=== PATIENT | female | born 1960 | race Caucasian/White ===

== ENCOUNTER 2016-09-22 20:15 | Emergency (ER) | payer OTHER ==
[~2016-09-22 20:15] MED LIST: ALDACTONE100 M1 PO; ALEVE220 MG PO; ASPIRIN CHILDRE81 MG PO; BENZONATATE200 M1 PO; CENTRUM1 TA1 PO; DOXYCYCLINE HY100 M4 PO; FIORICET 300 MG1 CAP PO; FUROSEMIDE20 MG PO; LEVOTHYROXINE88 MCG PO; MOBIC15 M1 PO; PANTOPRAZOLE SO40 M1 PO; PROVENTIL HFA6.7 GM INH; TENORMIN25 M1 PO; TRAMADOL50 MG PO; TYLENOL #31 TAB PO; XANAX0.5 M1 PO
--- NOTE | 2016-09-22 21:29 | ED UPPER/LOWER EXTREMITY COMPL ---
History of Present Illness General Chief Complaint: Upper Extremity Problem Stated Complaint: "@4AM I FELL OUT OF BED, MY LEFT SHOULDER HURT" Source: patient Exam Limitations: no limitations Vital Signs & Intake/Output Vital Signs & Intake/Output Vital Signs Date Time Temp Pulse Resp B/P Pulse O2 O2 Flow FiO2 Ox Delivery Rate 09/22 2218 97.1 88 16 120/74 96 09/22 2021 97.8 90 20 116/78 99 Allergies Coded Allergies: amoxicillin (Severe, GI UPSET 06/16/16) Reconcile Medications Albuterol Sulfate (Proair Hfa) 90 MCG HFA.AER.AD 2 PUF INH PRN RESPIRATORY ( Reported) Alprazolam (Xanax) 0.5 MG TABLET 1 TAB PO PRN ANXIETY (Reported) Atenolol (Tenormin) 25 MG TABLET 0.5 TAB PO DAILY HEART (Reported) Hydrocodone/Acetaminophen (Vicodin 5-300 MG Tablet) 5 MG-300 MG TABLET 1 TAB PO BID PRN PAIN Levothyroxine Sodium 88 MCG TABLET 1 TAB PO DAILY THYROID (Reported) Meloxicam (Mobic) 15 MG TABLET 1 TAB PO DAILY PRN PAIN/INFLAMMATION (Reported ) Pantoprazole Sodium 40 MG TABLET.DR 1 TAB PO DAILY GI (Reported) Spironolactone (Aldactone) 100 MG TABLET 1 TAB PO DAILY BP (Reported) Triage Note: PER PT FELL OUT OF BED AT 0400 AND PAIN TO L SHOULDER. LANDED ON IT MELOXICAM AT 1600 Triage Nurses Notes Reviewed? yes Onset: Abrupt Duration: constant Severity: moderate Severity Numbers: 5 Method of Injury: direct blow, fall HPI: Patient is a 55-year-old female who presents emergency and that today on getting up out of bed she tripped and landed on the left lateral aspect of her shoulder resulting in acute onset of 7 out of 10 localized left arm shoulder pain. Denies any elbow pain head strike neck pain back pain or preceding episodes of lightheaded or dizziness sensation. Patient states that left arm movements make worse. Patient is right arm dominant. Patient has been taking meloxicam previously prescribed with minimal relief of symptoms (KYE CARLOS) Past History Travel History Traveled to [place] past 21 day No Medical History Any Pertinent Medical History? see below for history Neurological: NONE EENT: NONE Cardiovascular: NONE Respiratory: NONE Gastrointestinal: GERD Hepatic: NONE Renal: NONE Musculoskeletal: MARFAN SYNDROME Psychiatric: anxiety Endocrine: THYROID Blood Disorders: NONE Cancer(s): NONE [place] DEMONSTRATOR/Reproductive: NONE Other Medical Hx: marfan's syndrome. Surgical History Surgical History: non-contributory, N Psychosocial History What is your primary language Polish Tobacco Use: Never used Family History Hx Contributory? No (KYE CARLOS) Review of Systems Review of Systems Constitutional: Reports: no symptoms. EENTM: Reports: no symptoms. Respiratory: Reports: no symptoms. Cardiovascular: Reports: no symptoms. Gastrointestinal/Abdominal: Reports: no symptoms. Genitourinary: Reports: no symptoms. Musculoskeletal: Reports: see HPI, joint pain. Skin: Reports: no symptoms. Neurological/Psychological: Reports: no symptoms. Hematologic/Endocrine: Reports: no symptoms. Immunological: Reports: no symptoms. All Other Systems: Reviewed and Negative (KYE CARLOS) Physical Exam Physical Exam General Appearance: no apparent distress, alert Neurologic/Tendon: normal sensation, normal motor functions, normal tendon functions, responds to pain, no evidence tendon injury, no pulse deficit Comments: Well-developed well-nourished no apparent distress. HEENT: Atraumatic, extraocular motion intact Neck: Supple, no lymphadenopathy Back: Nontender Respiratory: No respiratory distress Extremities: Left shoulder normal inspection, noted acromioclavicular in general glenohumeral point tenderness decreased active range of motion noted with 45 of flexion abduction and Left upper extremity dermatomes intact radial pulse +2 Left elbow nontender normal inspection for lack of range of motion Neuro: Alert and oriented x3 Psych: Mood affect normal, normal memory normal judgment. (KYE CARLOS) Progress Differential Diagnosis: arterial insufficiency, compartment syndrome, contusion, dislocation, DVT, fracture, gout, septic arthritis, sprain, tendon injury Plan of Care: Orders Procedure Date/time Status XRY-SHOULDER COMPLETE-LEFT 09/23 2023 Active No osseous injury noted on x-rays, patient had shoulder immobilizer placed pre- and post-neurovascular was intact. Patient was strongly advised to follow-up with orthopedic doctor. (KYE CARLOS) Diagnostic Imaging: Viewed by Me: Radiology Read. Radiology Impression: no acute abnormality, no fracture, no dislocation Comments: PATIENT: BUSTER TAYLOR PRESENT AGE: 55 PATIENT ACCOUNT NO: [id number] : 60 LOCATION: [facility] ORDERING PHYSICIAN: KYE SHAH SERVICE DATE: 09/22/16-2023 EXAM TYPE: RAD - XRY-SHOULDER COMPLETE-LEFT EXAMINATION: XR SHOULDER, LEFT CLINICAL INFORMATION: Dislocation. COMPARISON: None TECHNIQUE: AP external rotation, Grashey, scapular Y, and axillary views of the left shoulder. FINDINGS: The bones and soft tissues are normal. No fracture. Glenohumeral and acromioclavicular alignment is anatomic with normal joint space. No abnormal soft tissue calcifications. Sternotomy wires are in place and intact. IMPRESSION: Normal left shoulder. DICTATED BY: REMY PACE MD DATE/TIME DICTATED: (YRIS SHAH,KYE) Departure Departure Disposition: HOME OR SELF CARE Condition: Stable Clinical Impression Primary Impression: Left shoulder pain Secondary Impressions: Acromioclavicular (AC) joint injury Referrals: MELISSA WALTERS,JULIO CÉSAR Meade (PCP/Family) IZABEL WALTERS,ALEX Additional Instructions: As discussed continue TO use THE shoulder immobilizer until YOU can move THE left shoulder without pain. If symptoms worsen return to emergency room. Continue your previously prescribed medications especially your meloxicam for pain and inflammation and begin the prescription of Vicodin for breakthrough pain relief. If no better in one week follow-up with orthopedic Dr. Reeves for further dilation treatment. Prescriptions waiting at [facility] pharmacy. Departure Forms: Customer Survey General Discharge Information Prescriptions: Current Visit Scripts Hydrocodone/Acetaminophen (Vicodin 5-300 MG Tablet) 1 TAB PO BID PRN PAIN #8 TAB (KYE CARLOS) PA/BAND SAW FILER Co-Sign Statement Statement: ED Attending supervision documentation- [] I saw and evaluated the patient. I have also reviewed all the pertinent lab results and diagnostic results. I agree with the findings and the plan of care as documented in the PA's/BAND SAW FILER's documentation. [X] I have reviewed the ED Record and agree with the PA's/BAND SAW FILER's documentation. [] Additions or exceptions (if any) to the PAs/BAND SAW FILER's note and plan are summarized below: [] (BETSY WALTERS,NAVEED Carnes)
--- NOTE | 2016-09-22 21:37 | RADIOLOGY REPORT ---
EXAMINATION: XR SHOULDER, LEFT CLINICAL INFORMATION: Dislocation. COMPARISON: None TECHNIQUE: AP external rotation, Grashey, scapular Y, and axillary views of the left shoulder. FINDINGS: The bones and soft tissues are normal. No fracture. Glenohumeral and acromioclavicular alignment is anatomic with normal joint space. No abnormal soft tissue calcifications. Sternotomy wires are in place and intact. IMPRESSION: Normal left shoulder.
[2016-09-22] MEDS ORDERED: VICODIN 5-3001 EACH PO (22:07)
[2016-09-22] MEDS ORDERED: PROAIR HFA8.5 GM INH (22:11)
[2016-09-22 22:19] VITALS: BP 120/74
== END 2016-09-22 22:20 ==
LOC: ERH 20:15
DX: S49.92XA Unspecified injury of left shoulder and upper arm, initial encounter (principal); W06.XXXA Fall from bed, initial encounter; Y92.9 Unspecified place or not applicable; Y93.9 Activity, unspecified
CPT/HCPCS: 73030-LT